=== PATIENT | male | born 1965 | race Caucasian/White ===

== ENCOUNTER 2021-05-22 12:01 | Emergency (ER) | payer BC ==
--- NOTE | 2021-05-22 13:24 | ED ---
General Adult HPI - General Chief complaint: Upper Respiratory Infection Stated complaint: Covid+, cough, fever Time Seen by Provider: 05/22/21 13:15 Source: patient, RN notes reviewed, old records reviewed Mode of arrival: ambulatory Limitations: no limitations - History of Present Illness Initial comments: This is a well-appearing 55-year-old male patient, denies medical history no medications on a daily basis. States that he developed cough and fevers approximately 9 days ago. He has had a decrease in appetite, denies any nausea vomiting or diarrhea. He denies any chest pain. He is Covid positive and here for monoclonal antibodies infusion. -: days(s) (9) Severity scale (1-10): 0 Associated Symptoms: cough, fever/chills - Related Data Previous Rx's Medication Instructions Recorded Albuterol Inhaler [Ventolin Hfa 2 puff INHALATION RT-QID #8 gm 05/22/21 Inhaler] Allergies Allergy/AdvReac Type Severity Reaction Status Date / Time Penicillins Allergy Unknown Verified 05/22/21 12:20 Review of Systems ROS Statement: Those systems with pertinent positive or pertinent negative responses have been documented in the HPI. ROS Other: All systems not noted in ROS Statement are negative. Past Medical History Past Medical History: No Reported History History of Any Multi-Drug Resistant Organisms: None Reported Past Surgical History: No Surgical Hx Reported Past Psychological History: No Psychological Hx Reported Smoking Status: Never smoker Past Alcohol Use History: Occasional Past Drug Use History: None Reported General Exam Limitations: no limitations General appearance: alert, in no apparent distress Head exam: Present: atraumatic, normocephalic, normal inspection Eye exam: Present: normal appearance, EOMI ENT exam: Present: normal exam, normal oropharynx, mucous membranes moist Neck exam: Present: normal inspection, full ROM. Absent: tenderness, meningismus, lymphadenopathy, thyromegaly Respiratory exam: Present: normal lung sounds bilaterally. Absent: respiratory distress, wheezes, rales, rhonchi, stridor, chest wall tenderness, accessory muscle use, decreased breath sounds Cardiovascular Exam: Present: regular rate, normal rhythm, normal heart sounds. Absent: systolic murmur, diastolic murmur, rubs, gallop, clicks Extremities exam: Present: full ROM, normal capillary refill Neurological exam: Present: alert, oriented X3, normal gait Psychiatric exam: Present: normal affect, normal mood Skin exam: Present: warm, dry, intact, normal color. Absent: rash, cyanosis, petechiae, pallor Course Vital Signs 05/22/21 12:21 Temperature 100.3 F H Pulse Rate 86 Respiratory 20 Rate Blood Pressure 144/99 O2 Sat by Pulse 95 Oximetry Medical Decision Making - Medical Decision Making This is a well-appearing 55-year-old male patient presents to the emergency room with positive coronavirus swab. He states that his symptoms started approximately 9 days ago with cough and fevers. He has not been vaccinated. He is agreeable to receiving the monoclonal antibodies infusion. He denies any medical history, no medicines on a daily basis. He is obese. He denies any chest pain or vomiting or diarrhea. His oxygen saturation in the emergency room was 95%. He does state that he has persistent cough at times feeling short of breath. He was given an order for monoclonal antibodies infusion to go to [facility]. He will be prescribed an albuterol inhaler and follow-up with his primary care doctor. - Lab Data Lab Results 05/22/21 Range/Units 12:25 Coronavirus (PCR) Detected A (Not Detectd) Disposition Clinical Impression: COVID-19 Disposition: HOME SELF-CARE Condition: Good Is patient prescribed a controlled substance at d/c from ED?: No Time of Disposition: 13:23
[2021-05-22] MEDS ORDERED: ACETAMINOPHEN TAB 325 MG TAB PO STA (13:25)
[2021-05-22 13:54] VITALS: TEMP 96.4
[2021-05-22] MEDS ORDERED: SODIUM CHLORIDE 0.9% 500 ML 500 ML in EMPTY BAG 1 BAG IV PRN (13:55)
[2021-05-22] MEDS ORDERED: CASIRIVIMAB (REGN10933) (EUA) 600 MG, IMDEVIMAB (REGN10987) (EUA) 600 MG in SODIUM CHLO... IVPB ONE (14:00)
[2021-05-22] MEDS ORDERED: SODIUM CHLORIDE 0.9% 50 ML IVPB ONE (14:30)
[2021-05-22 14:43] VITALS: BP 128/84; PULSE 73; RESP 18
== END 2021-05-22 15:20 | disposition home or self-care (01) ==
LOC: EC 12:01 → PROCWHC3 12:01 → EDSTATUS 13:51 → PROCWHC3 15:20
DX: U07.1 COVID-19 (principal)
CPT/HCPCS: 87635; 96360; 99283; Q0244; M0243